=== PATIENT | female | born 1995 | race African-American/Black ===

== ENCOUNTER 2018-05-26 07:53 | Outpatient (CLI) | payer OTHER ==
--- NOTE | 2018-05-26 10:36 | MRI Report ---
Reason: HEADACHE Procedure Date: 05/26/2018 Accession Number: [id number] / [id number] Procedure: MRI - Brain W/O CPT Code: FULL RESULT: EXAM: MRI BRAIN WITHOUT CONTRAST EXAM DATE: 05/26/2018 08:46 AM. CLINICAL HISTORY: Daily headaches for a year. Symptoms increase with exercise. COMPARISON: None. TECHNIQUE: Multiplanar, multisequence T1-weighted and fluid-sensitive MR sequences of the brain were performed. Sequences optimized for routine evaluation. Other: None. IV Contrast: None. FINDINGS: Brain Volume: Normal for age. Parenchyma/Dura: No mass, acute infarct or hemorrhage. No white matter lesions identified. Ventricles/Cisterns: No hydrocephalus. No abnormal extra-axial fluid collection or hemorrhage. Orbits: Symmetric and unremarkable. Sella Turcica: The pituitary gland, cavernous sinuses, suprasellar cistern and optic chiasm are unremarkable. IAC: Symmetric and unremarkable. Vasculature: Normal signal flow void is seen in the major arterial structures at the skull base. Sinuses: No acute appearing sinus disease. Bones: No focal pathologic appearing marrow signal changes. Other: None. IMPRESSION: 1. Normal brain MRI. [facility]
== END 2018-05-26 07:54 | disposition home or self-care (01) ==
LOC: DI 07:53
PROVIDERS: ATTEND Registered Nurse Diabetes Educator
DX: R51 Headache (principal)
CPT/HCPCS: 70551